=== PATIENT | male | born 1955 | race Caucasian/White ===

== ENCOUNTER 2017-02-04 10:39 | Emergency (ER) | payer OTHER ==
[2017-02-04 10:44] VITALS: BP 144/85; PULSE 114; TEMP 97.5; BMI 33.3
[2017-02-04] MEDS ORDERED: IBUPROFEN 600 MG TABLET (FP) PO ONE ×2 (11:48→11:50)
--- NOTE | 2017-02-04 11:53 | PDOC ---
History of Present Illness - General Chief Complaint: Cold Symptoms Stated Complaint: COLD SYMPTOMS Time Seen by Provider: 02/04/17 11:43 History Source: Patient Exam Limitations: No Limitations - History of Present Illness Initial Comments: 02/04/17 11:49 61 yr male with sore throat, cough nasal congestion ear pain for 4 days no fever . no sob no chest pain Past History - Past Medical History Allergies/Adverse Reactions: Allergies Allergy/AdvReac Type Severity Reaction Status Date / Time No Known Allergies Allergy Verified 02/04/17 10:41 Home Medications: Ambulatory Orders Atorvastatin Ca [Lipitor] 40 mg PO HS 02/04/17 Fluticasone Propionate [Flonase Allergy Relief] 9.9 ml NS DAILY #1 bottle COPD: No Hypercholesterolemia: Yes - Suicide/Smoking/Psychosocial Hx Smoking History: Never smoked Information on smoking cessation initiated: No Hx Alcohol Use: No Drug/Substance Use Hx: No Substance Use Type: None Respiratory Specific PMHX - Complaint Specific PMHX Angina: No Bronchitis: No Pneumonia: No Pulmonary Embolus: No TB (Tuberculosis): No Review of Systems - Review of Systems Able to Perform ROS?: Yes Is the patient limited Lithuanian proficient: No Constitutional: No: Symptoms Reported HEENTM: Yes: See HPI Respiratory: Yes: See HPI *Physical Exam - Vital Signs Last Vital Signs Temp Pulse Resp BP Pulse Ox 97.5 F L 114 H 18 144/85 100 02/04/17 10:41 02/04/17 10:41 02/04/17 10:41 02/04/17 10:41 02/04/17 10:41 - Physical Exam General Appearance: Yes: Nourished, Appropriately Dressed HEENT: positive: EOMI, JOHN, Pharyngeal Erythema, Tonsillar Erythema. negative : Tonsillar Exudate Neck: positive: Supple. negative: Lymphadenopathy (R), Lymphadenopathy (L) Respiratory/Chest: positive: Lungs Clear, Normal Breath Sounds Cardiovascular: positive: Regular Rhythm, Regular Rate Gastrointestinal/Abdominal: positive: Normal Bowel Sounds, Soft Lymphatic: negative: Adenopathy Musculoskeletal: positive: Normal Inspection Extremity: positive: Normal Capillary Refill, Normal Inspection, Normal Range of Motion Integumentary: positive: Normal Color, Dry, Warm Neurologic: positive: Fully Oriented, Alert, Normal Mood/Affect, Normal Response , Motor Strength 5/5 Medical Decision Making - Medical Decision Making 02/04/17 11:50 cc: sore throat, cough congestion, dried nasal membranes no fever no sob or chest pain non toxic will check for strep motrin now *DC/Admit/Observation/Transfer Diagnosis at time of Disposition: Viral upper respiratory illness - Discharge Dispostion Disposition: HOME Condition at time of disposition: Good - Prescriptions Prescriptions: Fluticasone Propionate [Flonase Allergy Relief] 9.9 ml NS DAILY #1 bottle - Referrals Referrals: Jad Hernández MD [Primary Care Provider] - - Patient Instructions Additional Instructions: increase vitamin C and zinc to boost immune system (over the counter [place]-C ) drink pleanty of fluids and get pleanty of rest at home take motrin 600mg every 6hrs for pain as needed follow with your PMD for any worsening symptoms - Post Discharge Activity
== END 2017-02-04 12:49 | disposition home or self-care (01) ==
LOC: JERFT 10:39
DX: J06.9 Acute upper respiratory infection, unspecified (principal); B97.89 Other viral agents as the cause of diseases classified elsewhere; E78.00 Pure hypercholesterolemia, unspecified
CPT/HCPCS: 87070; 87430; 99281-25